=== PATIENT | male | born 1955 | race African-American/Black ===

== ENCOUNTER 2024-09-15 10:45 | Emergency (ER) | payer SELFPAY ==
[~2024-09-15] VITALS: Ht 170.2 cm; Wt 68.0 kg
[2024-09-15 10:47] VITALS: O2SAT 99
[2024-09-15 11:35] VITALS: BP 138/80; PULSE 64; RESP 16; TEMP 36.7; O2SAT 100
[2024-09-15] MEDS ORDERED: CEPH500T MT (12:28)
[2024-09-15] MEDS ORDERED: PYR200 MT (12:28)
[2024-09-15] MEDS: PHENAZOPYRIDINE HCL 100MG TABLET PO ONE (12:48)
[2024-09-15] MEDS: CEPHALEXIN 250MG CAPSULE PO ONE (12:48)
[2024-09-15 14:05] LABS: CLARITY URINE TURBID (CLEAR); COLOR URINE DARK YELLOW (YELLOW); GLUCOSE URINE NEGATIVE (NEGATIVE); KETONES URINE TRACE (NEGATIVE); LEUKOCYTE ESTERASE URINE 3+ (NEGATIVE); NITRITE URINE POSITIVE (NEGATIVE); OCCULT BLOOD URINE 3+ (NEGATIVE); PROTEIN URINE 2+ (NEGATIVE); SPECIFIC GRAVITY URINE 1.022 (1.005-1.030)
[2024-09-15 14:07] LABS: BACTERIA URINE 4+; SQUAMOUS EPITHELIAL CELL URINE NONE SEEN /lpf (RARE/1+); WBC URINE TNTC /hpf (0-2)
[2024-09-15 14:08] LABS: RBC URINE TNTC /hpf (0-2)
== END 2024-09-15 13:25 | disposition home or self-care (01) ==
LOC: ER 10:45
DX: N39.0 Urinary tract infection, site not specified (principal)
CPT/HCPCS: 81003; 87077; 87186; 99283